=== PATIENT | male | born 1960 | race Caucasian/White ===

== ENCOUNTER 2022-07-12 11:15 | Outpatient (RCR) | payer OTHER, BC, SELFPAY | END 2022-10-01 14:52 | disposition home or self-care (01) | PROVIDERS: Visit Provider Physician Assistant | DX: M25.561 Pain in right knee (principal); R26.2 Difficulty in walking, not elsewhere classified; M25.661 Stiffness of right knee, not elsewhere classified; Z51.89 Encounter for other specified aftercare | CPT/HCPCS: 97032; 97110; 97140 ==

== ENCOUNTER 2022-09-05 08:06 | Outpatient (CLI) | payer OTHER, BC, SELFPAY ==
--- NOTE | 2022-09-05 08:15 | MR_ITS ---
[address] [address] Phone:?[phone] Fax:?[phone] Referring Physician Information: Ginger Clements [address] [facility] [address] Phone:?[phone] Fax:?[phone] Patient:?Mehrdad Farah D.O.B:?1960 Sex:?Male Phone:?[phone] [facility] MRN:?[id number] Exam Date:?09/05/2022 ? EXAM: MRI of the RIGHT KNEE, without contrast CLINICAL INFORMATION: Male, 61 years old, with right knee pain. INDICATION: Evaluate for meniscal tear. PRIOR SURGERY: None reported. PLAIN FILMS: None available. COMPARISONS: No prior MRIs available. TECHNICAL INFORMATION: Using a 1.5T MR scanner and a localizing surface coil: sagittals: PD, PDFS coronals: PD, STIR axials: PD, T2FS SEDATION: None CONTRAST: None FINDINGS: Knee joint: Effusion: Small right knee effusion. Popliteal cyst: None. Loose bodies: Approximately 12 x 8 x 12 mm ossific intra-articular body is present in the posterolateral aspect of the medial compartment, adjacent to the PCL (axial T2FS series 4 image 21 and sagittal PDFS series 6 image 17). An additional intra-articular bodies present in the anterior aspect of the joint, adjacent to the medial meniscal anterior root, measuring 6 x 2 x 3 mm (sagittal PDFS series 6 image 17 and coronal PD series 7 image 13). Subcutaneous and extra-articular soft tissues: Unremarkable. Ligaments: ACL: Intact ACL anteromedial and posterolateral bundles, without sprain or tear. PCL: Intact PCL, without acute or chronic injury. MCL: Intact MCL superficial and deep layers, without injury. LCL: Intact LCL, without injury. Posterolateral corner: No posterolateral corner soft tissue injury. Popliteus, biceps femoris, iliotibial band, popliteofibular ligament and lateral gastrocnemius are intact. Posteromedial corner: No posteromedial corner soft tissue injury. Semimembranosus, pes anserine tendons and posterior oblique ligament are without injury, tendinopathy or bursitis. Extensor mechanism: Patellar tendon: Intact, without tendinopathy. Quadriceps tendon: Intact, without tendinopathy. Retinacula: Medial and lateral retinacula are intact. Fat pads: Mild-moderate edema is present within the superolateral Hoffa's fat pad (sagittal PDFS series 6 image 10 and axial T2FS series 4 image 16). Unremarkable suprapatellar and prefemoral fat pads. Medial compartment: Medial meniscus: Complex apical free edge and undersurface tearing of the posterior horn and body measures 3.4 cm (sagittal PDFS series 6 images 21-26 and coronal STIR series 8 images 15-20). Meniscal extrusion measures 6 mm. No parameniscal cyst. A 10 x 2 x 3 mm flap of meniscal tissue has extruded into the meniscotibial recess (axial T2FS series 4 image 24 and coronal STIR series 8 image 17). An additional flap fragment is present in the anterior aspect of the medial compartment measuring 8 x 8 x 1 mm (sagittal PD series 5 image 21 and coronal STIR series 8 image 14). Medial femoral condyle & tibial plateau: Generalized grade III/IV chondromalacia of the medial compartment, with moderate reactive osseous changes and mild marginal osteophytosis. Lateral compartment: Lateral meniscus: No articular surface, meniscosynovial junction or root tear. No displacement, extrusion or parameniscal cyst. Lateral femoral condyle: Generalized mild grade II chondromalacia of the lateral femoral condyle with a superimposed 7 x 13 mm sharply marginated near full- thickness chondral defect (coronal STIR series 8 image 23 and sagittal PDFS series 6 image 10). Lateral tibial plateau: No chondromalacia or osteochondral abnormality. Patellofemoral joint: Patella: Generalized grade III chondromalacia of the patella, with mild marginal osteophytosis. Trochlea: Broad-based grade III chondromalacia of the medial facet and central sulcus of the trochlea, with mild marginal osteophytosis. Proximal tibiofibular joint: Unremarkable, without evidence of ligament sprain injury, joint effusion or adjacent marrow edema. Bones: No stress/occult fractures or other marrow edema/pathology. IMPRESSION: 1. Moderate-advanced osteoarthritis of the medial compartment. 2. Complex degenerative tearing of the posterior horn and body of the medial meniscus measuring 3.4 cm, with 6 mm of meniscal extrusion and 2 slender flap fragments, as described above. 3. Moderate osteoarthritis of the patellofemoral compartment. 4. 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 5. Small knee joint effusion with 2 ossific intra-articular bodies, the larger of which is located posteriorly measures 2 x 8 x 12 mm. 6. Patellar tendon lateral femoral condyle friction syndrome. 7. No cruciate or collateral ligament sprain/tear. 8. No lateral meniscal tear. BC Electronically signed on 09/05/2022 12:14:00 PM by Tino Florian M.D.
== END 2022-09-05 08:07 | disposition home or self-care (01) ==
LOC: MRI 08:09
PROVIDERS: PCP Physician Assistant; Visit Provider Physician Assistant
DX: M25.561 Pain in right knee (principal); M17.9 Osteoarthritis of knee, unspecified; M94.261 Chondromalacia, right knee; S89.91XD Unspecified injury of right lower leg, subsequent encounter
CPT/HCPCS: 73721

== ENCOUNTER 2025-06-20 01:24 | Emergency (ER) | payer OTHER, SELFPAY ==
--- OUTSIDE RECORDS SUMMARY | 2025-06-20 01:27 | XMS_ITS | Clinical Summary ---
Author Organization [facility] Address [address] [place] [address] Care Team Providers Care Shingler Name Role Phone Imelda Braswell Primary Care Provider [phone] Allergies Active Allergy Reactions Criticality Noted Date Comments Clindamycin Rash Medium 08/28/2010 Fixed hive like rash. Penicillins *Unknown 12/21/2015 Medications omeprazole (PRILOSEC) 40 mg Delayed-Release capsuleIndicatio ns:Gastroesophag eal reflux disease, unspecified whether esophagitis present TAKE 1 CAPSULE DAILY BEFORE A MEAL 90 Capsule 4 Active valACYclovir 500 mg tabletIndication s:Genital herpes simplex, unspecified site Take 1 tablet bid for 3 days. Take at onset of herpes outbreak. 18 Tablet 5 5 Active valACYclovir (VALTREX) 500 mg tabletIndication s:Genital herpes simplex, unspecified site TAKE 1 TABLET BY MOUTH TWICE DAILY X 3 DAYS 6 Tablet 6 4 06/08/20 25 Discontinu ed(Reorder (E-cancel not sent)) Active Problems Problem Noted Date Diagnosed Date Primary osteoarthritis of right knee 07/13/2023 Bodies, loose, joint, knee, right 01/18/2023 Encounter related to worker's compensation claim 01/18/2023 Arthritis of right knee 11/02/2022 Complex tear of medial meniscus of right knee Sigmoid diverticulitis 06/17/2019 Moderate single current epis ode of major depressive disorder 01/20/2016 Bilateral hearing loss 01/20/2016 Adenomatous colon polyp 08/18/2012 Overview (01/10/2021): Colonoscopy 08/2012 polyps repeat in 5 years Colonoscopy 01/2021 6 adenomatous polyps, repeat in 3 years Esophageal reflux 07/17/2012 Overview (01/10/2021): EGD 01/2021 mild eosinophilic esophagitis Genital herpes 07/03/2011 Resolved Problems Problem Noted Date Diagnosed Date Resolved Date Malignant melanoma of right upper extremity including shoulder 06/17/2019 07/13/2023 Overview (06/17/2019): Melanoma in situ. January 2019. Following with [facility]. Tick bite, infected 04/10/2010 07/03/20 11 Encounters Date Type Department Care Team Description 06/18/2025 9:45 AM CDT Ancillary Procedure [facility] [address] [place] [address] Arrived 06/18/2025 Travel 06/10/2025 Telephone [facility] [address] [place] [address] Olivia Marshall, RN Follow Up (Back pain and shortness of breath) 06/08/2025 10:50 AM CDT Office Visit [facility] [address] [place] [address] Imelda Braswell PA Back Pain (About 3 weeks ago his back was very sore-could not even touch his back-chiro said nothing wrong with spine and to see doctor-pain went through into stomach); Physical 06/08/2025 Travel from Last 3 Months Immunizations Immunization Administration Dates Next Due COVID-19 vaccine ([employer] 30mcg/0.3mL) P F, MDV 12/06/2021,11/08/2021 Influenza Virus, Unspecified 09/03/2020 Td (Age >=7 Years) 11/04/2006,11/10/1999 Tdap 09/14/2022,07/03/2011 Zoster (Shingrix-RZV, recombinant) 07/25/2021, Family History Medical History Relation Name Comments Other Brother 2 rare kidney dis ease Cancer-prostate Father , ag e 65 Unknown Maternal Grandfather Unknown Maternal Grandmother Stroke Mother , age 7 3 Unknown Paternal Grandfather Unknown Paternal Grandmother Good Health Sister 3 Other Sister 4 HTN, weak heart Blood Disease Sister 5 had bilateral dvt and PE? Stroke Sister 5 Relation Name Status Comments Brother 1 Alive Brother 2 Father Maternal Grandfather Maternal Grandmother Mother Paternal Grandfather Paternal Grandmother Sister 1 Alive Sister 2 Alive Sister 3 Sister 4 Sister 5 Social History Tobacco Use Types Packs/Day Years Used Date Smoking Tobacco: Never Smokeless Tobacco: Never Tobacco Cessation:Counseling Given: Yes Alcohol Use Standard Drinks/Week Comments Not Currently 0 (1 standard drink = 0.6 oz pur e alcohol) PHQ-2 Answer Date Recorded PHQ-2 TOTAL SCORE 3 06/08/2025 Social Connections Answer Date Recorded Do you often feel lonely or isolated from those around you? 4 06/08/2025 Financial Resource Strain Answer Date R ecorded Difficulty of Paying Living Expenses 3 06/08/2025 Difficulty of Paying Living Expenses Not on file 06/08/2025 Food Insecurity Answer Date Recorded Do you worry your food will run out before you are able to buy more? 1 06/08/2025 Transportation Needs Answer Date Record ed Does lack of transportation keep you from medica l appointments? 1 06/08/2025 Does lack of transportation keep you from work, meetings or getting things that you need? 2 06/08/2025 Housing Stability Answer Date Recorded What is your housing situation today? 1 06/08/2025 Utilities Answer Date Recorded Do you have trouble paying f or utilities (for example, heat, electricity, water, phone)? 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) Not on cordell e Not on file Not on file Obstetrics History Last Filed Vital Signs Vital Sign Reading Time Taken Comments Blood Pressure 129/81 06/08/2025 10:46 AM CDT Pulse 84 06/08/2025 10:46 AM CDT Temperature 37.1 C (98.8 F) 11/03/2020 8:58 AM CHEF FRENCH Respiratory Rate 20 06/09/2019 9:30 AM CDT Oxygen Saturation 96% 06/08/2025 10:46 AM CDT Inhaled Oxygen Concentration - - Weight 105.2 kg (232 lb) 06/11/2025 6:10 AM CDT Height 167.6 cm (5' 6) 06/11/2025 6:10 AM CDT Body Mass Index 37.45 06/11/2025 6:10 AM CDT Plan of Treatment Health Maintenance Due Date Last Done Comments Pneumococcal series for age 50+ (1 of 1 - PCV) 2011 Colonoscopy through age 75 01/06/202401/06, 01/06/2021, 01/06/2021, Additional history exists COVID-19 vaccine series ( season) 2024 12/06/2021, 11/08/2021 Influenza Vaccine (#1) 2025 09/03/2020 BMI (ht and wt on same day) for age 18+ 06/08/2026 06/08/2025, 01/18/2023, 12/07/2022, Additional history exists Depression screening for age 12+ 06/08/2026 06/08/2025, 07/11/2023, 05/25/2021, Additional history exists Lipids for age 45-75 06/08/2030 06/08/2025, 07/11/2023, 06/16/2020, Additional history exists Tetanus booster 09/14/2032 09/14/2022, 08/01/2011, 11/04/2006, Additional history exists RSV vaccine for adults or (1 - 1-dose 75+ series) 2036 HIV for age 15-65 Completed 03/08/2010, 07/26/2009 Hepatitis C screening for age 18-79 Completed 03/08/2010, 07/26/2009 Zoster (shingles) series for age 50+ Completed 07/25/2021, 05/25/2021 Hepatitis B series for 19+ Aged Out N o longer eligible based on patient's age to complete this topic Procedures Procedure Name Priority Date/Time Associated Diagnosis Comments US ABDOMEN LIMITED RUQ Routine 06/18/2025 10:03 AM CDT Abdominal pain, RUQ (right upper quadrant) LIPID PANEL W REFLEX MEASURED LDL Routine 06/08/2025 11:28 AM CDT Screening cholesterol level COMP METABOLIC PANEL Routine 06/08/2025 11:28 AM CDT Diabetes mellitus screening HEMOGLOBIN A1C Routine 06/08/2025 11:28 AM CDT Diabetes mellitus screening PSA TOTAL Routine 06/08/2025 11:28 AM CDT Screening for malignant neoplasm of prostate CBC WITH AUTO DIFFERENTIAL Routine 06/08/2025 11:28 AM CDT Abdominal pain, RUQ (right upper quadrant) LIPASE Routine 06/08/2025 11:28 AM CDT Abdominal pain, RUQ (right upper quadrant) COLONOSCOPY SCREENING Routine 01/06/2021 7:55 AM CHEF FRENCH History of colon polyps Polyp of colon, unspecified part of colon, unspecified type Diverticulosis ANTI HIV 1/2 Routine 03/08/2010 10:44 AM CDT Screening for STDs (sexually transmitted diseases) ANTI HCV Routine 03/08/2010 10:44 AM CDT Screening for STDs (sexually transmitted diseases) from Last 3 Months or Most Recently Relevant to Health Maintenance Results * US ABDOMEN LIMITED RUQ (06/18/2025 10:03 AM CDT) Anatomical Region Laterality Modality Abdomen, LIVER Ultrasound 06/18/2025 3:09 PM CDT Impressions 06/18/2025 3:09 PM CDT Moderately severe hepatic steatosis. Remainder normal. Dictated by Micheal Chavarria MD @ 06/18/2025 3:09:38 PM (Electronically Signed) Narrative 06/18/2025 3:09 PM CDT For Patients: As a result of the Century Cures Act, medical imaging exams and procedure reports are released immediately into your electronic medical record. You may view this report before your referring provider. If you have questions, please contact your health care provider. INDICATION: Abdominal pain, RUQ (right upper quadrant) COMPARISON: none TECHNIQUE: Real time mcleod scale imaging and color Doppler analysis was performed of the right upper quadrant. FINDINGS: Liver echotexture is diffusely increased. No intrahepatic mass. There is a normal appearance of the hepatic IVC and proximal abdominal aorta. There is no evidence of ascites. The gallbladder is of normal size and there is no evidence of intraluminal stones or sludge. The gallbladder wall measures 3 mm in thickness. The common bile duct is of normal size and measures 3 mm in diameter at the level of the mirta hepatis. The visualized pancreas appears normal. There is no evidence of a stone or hydronephrosis within the right kidney. The right kidney measures 11.0 cm in length. Procedure Note Micheal Chavarria MD - 06/18/2025 For Patients: As a result of the Cures Act, medical imagingexams and procedure reports are released immediately into your electronicmedical record. You may view this report before your referring provider.If you have questions, please contact your health care provider. INDICATION: Abdominal pain, RUQ (right upper quadrant) COMPARISON: none TECHNIQUE: Real time mcleod scale imaging and color Doppler analysis was performed ofthe right upper quadrant. FINDINGS: Liver echotexture is diffusely increased. No intrahepatic mass. There is anormal appearance of the hepatic IVC and proximal abdominal aorta. Thereis no evidence of ascites. The gallbladder is of normal size and there isno evidence of intraluminal stones or sludge. The gallbladder wallmeasures 3 mm in thickness. The common bile duct is of normal size andmeasures 3 mm in diameter at the level of the mirta hepatis. Thevisualized pancreas appears normal. There is no evidence of a stone orhydronephrosis within the right kidney. The right kidney measures 11.0 cmin length. IMPRESSION: Moderately severe hepatic steatosis. Remainder normal. Dictated by Micheal Chavarria MD @ 06/18/2025 3:09:38 PM (Electronically Signed) us Imelda ELDRIDGE US Final Resu lt * HEMOGLOBIN A1C (06/08/2025 11:28 AM CDT) HEMOGLOBIN A1C 5.4 <5.7 % [facility] Comment: For the purpose of screening for the presence of diabetes: <5.7% Consistent with the absence of diabetes 5.7-6.4% Consistent with increased risk for diabetes (prediabetes) > or =6.5% Consistent with diabetes This assay result is consistent with a decreased risk of diabetes. Currently, no consensus exists regarding use of hemoglobin A1c for diagnosis of diabetes in children. According to [place] Diabetes Association (ADA) guidelines, hemoglobin A1c <7.0% represents optimal control in non- diabetic patients. Different metrics may apply to specific patient populations. Standards of Medical Care in Diabetes(ADA). Blood BLOOD SPECIMEN / Unknown 06/08/2025 11:28 AM CDT 06/08/2025 11:28 AM CDT Imelda ELDRIDGE CHEMISTRY Final Resu lt [facility] [address] [place] [address], [employer] [address] [place] [address] * (ABNORMAL) LIPID PANEL W REFLEX MEASURED LDL (06/08/2025 11:28 AM CDT) [facility] Signature CHOLESTEROL, TOTAL 167 <200 mg/dL [facility] HDL CHOLESTEROL 33(L) > OR = 40 mg/dL [facility] TRIGLYCERIDES 268(H) <150 mg/dL [facility] Comment: If a non-fasting specimen was collected, consider repeat triglyceride testing on a fasting specimen if clinically indicated. Mamta et al. J. of Clin. Lipidol. 2015;9:129-169. LDL-CHOLESTEROL 96 mg/dL (calc) [facility] Comment: Reference range: <100 Desirable range <100 mg/dL for primary prevention; <70 mg/dL for patients with CHD or diabetic patients with > or = 2 CHD risk factors. LDL-C is now calculated using the Randa calculation, which is a validated novel method providing better accuracy than the Friedewald equation in the estimation of LDL-C. Shay SS et al. DIANE. 2013;310(19): 0469-6618 (http://education.[facility]/faq/KZW936) CHOL/HDLC RATIO 5.1(H) <5.0 (calc) [facility] NON HDL CHOLESTEROL 134(H) <130 mg/dL (calc) [facility] Comment: For patients with diabetes plus 1 major ASCVD risk factor, treating to a non-HDL-C goal of <100 mg/dL (LDL-C of <70 mg/dL) is considered a therapeutic option. Blood BLOOD SPECIMEN / Unknown 06/08/2025 11:28 AM CDT 06/08/2025 11:28 AM CDT Imelda ELDRIDGE CHEMISTRY Final Resu lt [facility] [address] [place] [address], [employer] [id number] [place] [address] * (ABNORMAL) CBC AND DIFFERENTIAL (06/08/2025 11:28 AM CDT) WHITE BLOOD CELL COUNT 6.9 3.8 - 10.8 Thousand/u L [facility] RED BLOOD CELL COUNT 5.27 4.20 - 5.80 Million/uL [facility] HEMOGLOBIN 15.6 13.2 - 17.1 g/dL [facility] HEMATOCRIT 46.5 38.5 - 50.0 % [facility] MCV 88.2 80.0 - 100.0 fL [facility] MCH 29.6 27.0 - 33.0 pg [facility] MCHC 33.5 32.0 - 36.0 g/dL [facility] Comment: For adults, a slight decrease in the calculated MCHC value (in the range of 30 to 32 g/dL) is most likely not clinically significant; however, it should be interpreted with caution in correlation with other red cell parameters and the patient's clinical condition. RDW 14.3 11.0 - 15.0 % [facility] PLATELET COUNT 283 140 - 400 Thousand/u L [facility] MPV 9.3 7.5 - 12.5 fL [facility] ABSOLUTE NEUTROPHILS 3,491 1,500 - 7,800 cells/uL [facility] ABSOLUTE LYMPHOCYTES 2,049 850 - 3,900 cells/uL [facility] ABSOLUTE MONOCYTES 759 200 - 950 cells/uL [facility] ABSOLUTE EOSINOPHILS 531(H) 15 - 500 cells/uL [facility] ABSOLUTE BASOPHILS 69 0 - 200 cells/uL [facility] NEUTROPHILS 50.6 % [facility] LYMPHOCYTES 29.7 % [facility] MONOCYTES 11.0 % [facility] EOSINOPHILS 7.7 % [facility] BASOPHILS 1.0 % [facility] Blood BLOOD SPECIMEN / Unknown 06/08/2025 11:28 AM CDT 06/08/2025 11:28 AM CDT us Imelda ELDRIDGE HEMATOLOGY Final Resu lt [facility] [address] [place] [address], [employer] [address] * PSA TOTAL (DIAG OR SCREEN) (06/08/2025 11:28 AM CDT) PSA, TOTAL 0.77 < OR = 4.00 ng/mL [facility] Comment: The total PSA value from this assay system is standardized against the WHO standard. The test result will be approximately 20% lower when compared to the equimolar-standardized total PSA ([place]ather [place]). Comparison of serial PSA results should be interpreted with this fact in mind. This test was performed using the Siemens chemiluminescent method. Values obtained from different assay methods cannot be used interchangeably. PSA levels, regardless of value, should not be interpreted as absolute evidence of the presence or absence of disease. Blood BLOOD SPECIMEN / Unknown 06/08/2025 11:28 AM CDT 06/08/2025 11:28 AM CDT Imelda ELDRIDGE CHEMISTRY Final Resu lt [facility] [address] [place] [address], [place] [phone] [employer] [address] [place] [address] * LIPASE (06/08/2025 11:28 AM CDT) Pathologist [facility] LIPASE 45 7 - 60 U/L [employer] Blood BLOOD SPECIMEN / Unknown 06/08/2025 11:28 AM CDT 06/08/2025 11:28 AM CDT Imelda ELDRIDGE CHEMISTRY Final Resu lt Performing Organization Address [facility] Co de Phone Number [employer] [facility] [address] [place] [address], [place] [phone] [employer] [address] [place] [address] * (ABNORMAL) COMP METABOLIC PANEL (06/08/2025 11:28 AM CDT) GLUCOSE 102(H) 65 - 99 mg/dL [employer] Comment: Fasting reference interval For someone without known diabetes, a glucose value between 100 and 125 mg/dL is consistent with prediabetes and should be confirmed with a follow-up test. UREA NITROGEN (BUN) 17 7 - 25 mg/dL [employer] CREATININE 0.87 0.70 - 1.35 mg/dL [employer] EGFR 97 > OR = 60 mL/min/1. 73m2 [facility] BUN/CREATININE RATIO SEE NOTE: (calc) [facility] Comment: Not Reported: BUN and Creatinine are within reference range. SODIUM 139 135 - 146 mmol/L [facility] POTASSIUM 4.1 3.5 - 5.3 mmol/L [facility] CHLORIDE 106 98 - 110 mmol/L [facility] CARBON DIOXIDE 24 20 - 32 mmol/L [facility] CALCIUM 9.2 8.6 - 10.3 mg/dL [facility] PROTEIN, TOTAL 7.1 6.1 - 8.1 g/dL [facility] ALBUMIN 4.2 3.6 - 5.1 g/dL [facility] GLOBULIN 2.9 1.9 - 3.7 g/dL (calc) [facility] ALBUMIN/GLOBULIN RATIO 1.4 1.0 - 2.5 (calc) [facility] BILIRUBIN, TOTAL 0.6 0.2 - 1.2 mg/dL [facility] ALKALINE PHOSPHATASE 109 35 - 144 U/L [facility] AST 29 10 - 35 U/L [facility] ALT 36 9 - 46 U/L [facility] Blood BLOOD SPECIMEN / Unknown 06/08/2025 11:28 AM CDT 06/08/2025 11:28 AM CDT Imelda ELDRIDGE CHEMISTRY Final Resu lt [facility] [address] [place] [address], [facility] [address] [place] [address] * COLONOSCOPY (01/06/2021 7:51 AM CHEF FRENCH) 01/06/2021 7:51 AM CHEF FRENCH Narrative Transcriptions Shay Cummings MD - 01/06/2021 9:02 AM CST Patient Name: Selma Farah Procedure Date: 01/06/2021 Gender: Male Date of : 1960 Admit Type: Outpatient Procedure: Colonoscopy Proceduralist: Shay Cummings MD , Suze Fletcher RN (Nurse), Cleo Markham (Nurse) Referring MD: Radha Murrieta Indications/Pre-Op Diagnosis: Surveillance: Personal history ofadenomatous polyps on last colonoscopy > 5 years ago,Last colonoscopy: August 2012 Medications: Fentanyl 100 micrograms IV, Midazolam 5 mgIV, (medications documented represent totaldosages for multiple procedures) Procedure Description: The patient had risks, benefits and alternatives explained to andgave informed consent. The patient had a stable cardiopulmonary status and judged an adequate candidate for conscious sedation. The Colonoscope was passed through the anus and advanced to thececum, identified by appendiceal orifice and ileocecal valve. Thecolonoscopy was performed without difficulty. The patient tolerated the procedure well. The quality of the bowel preparation was good. The ileocecal valve, appendiceal orifice, and rectum were photographed. Complications: No immediate complications. Estimated Blood Loss & Specimen: Estimated blood loss: none. Specimen collected - Yes and sent to Laboratory Findings: The perianal and digital rectal examinations were normal. Five sessile polyps were found in the ascending colon. The polypswere 3 to 5 mm in size. These polyps were removed with a cold snare.Resection and retrieval were complete. A 4 mm polyp was found in the descending colon. The polyp wassessile. The polyp was removed with a cold snare. Resection and retrieval were complete. Multiple small and large-mouthed diverticula were found in thesigmoid colon and descending colon. Starr-diverticular erythema was seen. Diverticular are present from 40 cm to 15 cm. The exam was otherwise without abnormality on direct and retroflexion views. Impressions/Post-Op Diagnosis: - Five 3 to 5 mm polyps in the ascending colon, removed with a cold snare. Resected and retrieved. - One 4 mm polyp in the descending colon, removed with a cold snare. Resected and retrieved. - Mild diverticulosis in the sigmoid colon and in the descendingcolon. Starr-diverticular erythema was seen. - The examination was otherwise normal on direct and retroflexionviews. Recommendation: - Patient has a contact number available for emergencies. The signsand symptoms of potential delayed complications were discussed with the patient. Return to normal activities tomorrow. Written discharge instructions were provided to the patient. - Resume previous diet. - Continue present medications. - Await pathology results. - Repeat colonoscopy is recommended for surveillance. The colonoscopy date will be determined after pathology results from today's exambecome available for review. Moderate Sedation: Moderate (conscious) sedation was administered by the endoscopy nurse and supervised by the endoscopist. The following parameters were monitored: oxygen saturation, heart rate, respiratory rate, blood pressure, adequacy of pulmonary ventilation and reponse to care. Please refer to the patient's medical record flowsheets and nursing notes for moderate sedation details. Total physician intraservice time was 28 minutes. Shay Cummings MD 01/06/2021 9:01:54 AM This report has been signed electronically. Note Initiated On: 01/06/2021 7:51 AM Procedure Code(s): --- Professional --- 34414, Colonoscopy, flexible; with removalof tumor(s), polyp(s), or other lesion(s) bysnare technique Diagnosis Code(s): --- Professional --- K63.5, Polyp of colon Z86.010, Personal history of colonicpolyps K57.30, Diverticulosis of large intestine without perforation or abscess withoutbleeding CPT copyright 2019 [place] [employer]. All rights reserved. The codes documented in this report are preliminary and upon customer assistant reviewmay be revised to meet current compliance requirements. Scope In: 8:38:09 AM Scope Withdrawal Time 0 hours 14 minutes 13 seconds Scope Out: 8:54:30 AM us Shay Cummings MD PROCEDURE ORD Final Res ult * ANTI HCV (03/08/2010 10:44 AM CDT) ANTI HCV Non-reacti ve [facility] Blood specimen (specimen) BLOOD SPECIMEN / Unknown 03/08/2010 10:44 AM CDT 03/08/2010 10:37 AM CDT us Imelda Coleman DINKEY ENGINEER [employer] Final R esult [facility] [place]NAL ZIP [address] [address] * ANTI HIV 1/2 (03/08/2010 10:44 AM CDT) ANTI HIV 1/2 Non-reacti ve [facility] Blood specimen (specimen) BLOOD SPECIMEN / Unknown 03/08/2010 10:44 AM CDT 03/08/2010 10:37 AM CDT us Imelda Coleman DINKEY ENGINEER [employer] Final R esult [facility] [place]NAL ZIP [address] [place] [id number] from Last 3 Months or Most Recently Relevant to Health Maintenance Insurance [facility] * Guarantor: SELMA FARAH Account Type Relation to Patient Date of Phone Billing Address Workers Comp 1960 [id number] [facility] [place] [address] [employer] Care Teams Shingler Relationship Specialty Start Date End Date Imelda Braswell PA [address] [place] [address] PCP - General Physician Boat Assembler 07/02/23
[2025-06-20 01:28] VITALS: BP 169/91; PULSE 87; RESP 16; TEMP 36.3; O2SAT 97; BMI 35.0
--- NOTE | 2025-06-20 01:46 | ED.NECK ---
HPI - Neck Pain/Injury General Chief Complaint: Neck Injury/Pain Stated Complaint: neck pain, cardiac concerns Time Seen by Provider: 06/20/25 01:27 History of Present Illness HPI Narrative: Patient is a 64-year-old gentleman with no cardiovascular risk factors who presents with pain in the left side of his neck with movement. The pain is over the sternocleidomastoid extending posteriorly. He has no chest pain no shortness breath no radiculopathy no nausea no vomiting no fevers no chills. Pain is been often on for last several weeks. Patient has seen chiropractic in the symptoms did improve. Tonight he may have moved differently and he was having severe pain in the posterior occiput put and prior to coming to the emergency room he took 1 Tylenol. Pain is now gone. Patient has had no further symptoms and now feels well. Related Data Allergies Allergy/AdvReac Type Severity Reaction Status Date / Time Penicillins Allergy Intermediate Verified 06/20/25 01:33 Review of Systems Status of ROS: Reports: 10 or more systems reviewed and unremarkable except as noted in History and below Exam Narrative: Exam Narrative: EXAM GENERAL: Patient appears comfortable and well. EYES: No scleral icterus. ENT: Tympanic membranes and oropharynx normal. THYROID: no thyroid nodules or thyromegaly. LYMPH: No supraclavicular or cervical lymphadenopathy. SKIN: Visible skin seen during exam normal or with benign process only. EXT: No dependent lower extremity pedal edema. HEART: Regular rate and rhythm with no murmurs, rubs, or gallops. LUNGS: Clear to auscultation bilaterally with no crackles or wheezes. ABD: Soft, non tender, non distended. PSYCH: Good eye contact, speech is not pressured. Const: Vital Signs, click to edit/add: Vital Signs - 24 hr 06/20/25 01:28 Temperature 97.3 F L Pulse Rate [Left P ulse Oximeter] 87 Respiratory Rate 16 Blood Pressure [Ri ght Upper Arm] 169/91 H Pulse Oximetry 97 Oxygen Delivery Me thod Room Air Course Course ED Course: Patient seen and examined. Twelve lead EKG is normal upon my review. I did offer further evaluation and or anti-inflammatories. Patient declines stating that he feels much better. I would recommend ibuprofen 600 mg every 6 hours as needed ice and follow-up with primary care. Vital Signs Vital signs: Initial Vital Signs Temperature 97.3 F L 06/20/25 01:28 Temperature Source Temporal Artery Scan 06/20/25 01:28 Pulse Rate 87 06/20/25 01:28 Pulse Rhythm Regular 06/20/25 01:28 Respiratory Rate 16 06/20/25 01:28 Blood Pressure 169/91 H 06/20/25 01:28 Blood Pressure Mean 117 H 06/20/25 01:28 Blood Pressure Position Sitting 06/20/25 01:28 Pulse Oximetry 97 06/20/25 01:28 Oxygen Delivery Method Room Air 06/20/25 01:28 Vital Signs Temperature 97.3 F L 06/20/25 01:28 Pulse Rate 87 06/20/25 01:28 Respiratory Rate 16 06/20/25 01:28 Blood Pressure 169/91 H 06/20/25 01:28 Pulse Oximetry 97 06/20/25 01:28 Oxygen Delivery Method Room Air 06/20/25 01:28 Temperature 97.3 F L 06/20/25 01:28 Pulse Rate 87 06/20/25 01:28 Respiratory Rate 16 06/20/25 01:28 Blood Pressure 169/91 H 06/20/25 01:28 Pulse Oximetry 97 06/20/25 01:28 Oxygen Delivery Method Room Air 06/20/25 01:28 Discharge Plan Discharge Clinical Impression: Strain of neck muscle Patient Disposition: Home, Self-Care Condition: Stable Instructions: Cervical Sprain (ED) Additional Instructions: Tylenol 650 to a 1000 mg 3 times a day as needed Ibuprofen 600 mg 3 times a day as needed Rotate ice and heat Follow-up with your doctor as needed. Activity Level: No Restrictions Discharge Diet: Regular Follow Up/Referrals: Radha Murrieta PA [Primary Care Provider, Family Practice] Stand Alone Forms: MyHealth Info Instructions
== END 2025-06-20 02:14 | disposition home or self-care (01) ==
LOC: ED 02:11
PROVIDERS: Emergency Provider Internal Medicine; PCP Physician Assistant
DX: S16.1XXA Strain of muscle, fascia and tendon at neck level, initial encounter (principal)
CPT/HCPCS: 99283

== ENCOUNTER 2025-09-16 12:17 | Emergency (ER) | payer OTHER, SELFPAY ==
--- OUTSIDE RECORDS SUMMARY | 2025-09-16 12:20 | XMS_ITS | Clinical Summary ---
Author Organization [facility] Address [address] [place] [address] Care Team Providers Care Global Account Director Name Role Phone Imelda Braswell Primary Care Provider [phone] Allergies Active Allergy Reactions Criticality Noted Date Comments Clindamycin Rash Medium 08/28/2010 Fixed hive like rash. Penicillins *Unknown 12/21/2015 Medications valACYclovir 500 mg tabletIndication s:Genital herpes simplex, unspecified site Take 1 tablet bid for 3 days. Take at onset of herpes outbreak. 18 Tablet 5 06/08/20 25 Active semaglutide (weight loss) (Wegovy) 1.7 mg/0.75 mL subcutaneous penIndications:C lass 2 severe obesity with body mass index (BMI) of 35 to 39.9 with serious comorbidity,Fatt y liver Inject 1.7 mg subcutaneous once weekly for 28 days. Start after 4 weeks of 1 mg dose. 3 mL 12/06/19 26 026 Active semaglutide (weight loss) (Wegovy) 2.4 mg/0.75 mL subcutaneous penIndications:C lass 2 severe obesity with body mass index (BMI) of 35 to 39.9 with serious comorbidity,Fatt y liver Inject 2.4 mg subcutaneous once weekly. Start after 4 weeks of 1.7 mg dosing, continue 2.4 mg as maintenance. 9 mL 3 01/03/20 26 Active omeprazole (PRILOSEC) 40 mg Delayed-Release capsuleIndicatio ns:Gastroesophag eal reflux disease, unspecified whether esophagitis present Take 1 Capsule (40 mg) by mouth once daily before a meal. 10/13/20 25 Active omeprazole (PRILOSEC) 40 mg Delayed-Release capsuleIndicatio ns:Gastroesophag eal reflux disease, unspecified whether esophagitis present TAKE 1 CAPSULE DAILY BEFORE A MEAL 90 Capsule 09/26/20 025 Discontinu ed(Reorder (E-cancel not sent)) semaglutide (weight loss) (Wegovy) 0.5 mg/0.5 mL subcutaneous penIndications:F atty liver,Class 2 severe obesity with body mass index (BMI) of 35 to 39.9 with serious comorbidity Inject 0.5 mg subcutaneous once weekly for 28 days. Start after 4 weeks of 0.25 mg dose. 2 mL 07/29/20 25 025 semaglutide (weight loss) (Wegovy) 1 mg/0.5 mL subcutaneous penIndications:F atty liver,Class 2 severe obesity with body mass index (BMI) of 35 to 39.9 with serious comorbidity Inject 1 mg subcutaneous once weekly for 28 days. Start after 4 weeks of 0.5 mg dose. 2 mL 08/26/20 025 Discontinu ed(*Medica tion adjustment ) Active Problems Problem Noted Date Diagnosed Date History of skin cancer 09/15/2025 Class 2 severe obesity with body mass index (BMI) of 35 to 39.9 with serious comorbidity 09/15/2025 Fatty liver 06/21/2025 Primary osteoarthritis of right knee 07/13/2023 Bodies, [...] Encounters Date Type Department Care Team Description 09/16/2025 Nurse Triage [facility] [address] [place] [address] Imelda Braswell PA Abdominal Pain 09/13/2025 9:30 AM CDT Office Visit [facility] [address] [place] [address] Imelda Braswell PA Follow Up; Medication Management 09/13/2025 Travel 09/02/2025 Orders Only [facility] Scanner 1 scan: (1-Ord) [facility] 07/02/2025 Telephone [facility] [address] [place] [address] Imelda Braswell PA Prior Authorization (semaglutide (Wegovy) 0.25 mg/0.5 mL subcutaneous pen - APPEAL APPROVED 06/12/25-02/08/26) 07/01/2025 8:30 AM CDT Office Visit [facility] [address] [place] [address] Imelda Braswell PA Results (Follow up on liver) 07/01/2025 Travel 06/18/2025 9:45 AM CDT Ancillary Procedure [facility] [address] [place] [address] 06/18/2025 Travel from Last 3 Months Immunizations Immunization Administration Dates Next Due COVID-19 vaccine (Cache IQ 30mcg/0.3mL) P F, MDV 12/06/2021,11/08/2021 Influenza Virus, [...] on file Legal Sex Male 5:26 AM 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 AUTOMATION ENGINEER Gender Identity Not on file Sexual Orientation Not on file 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) Not on cordell e Not on file Not on file Obstetrics History Last Filed Vital Signs Vital Sign Reading Time Taken Comments Blood Pressure 127/83 09/13/2025 9:30 AM CDT Pulse 85 09/13/2025 9:30 AM CDT Temperature 37.1 C (98.8 F) 11/03/2020 8:58 AM 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 AUTOMATION ENGINEER Respiratory Rate 20 06/09/2019 9:30 AM CDT Oxygen Saturation 97% 09/13/2025 9:30 AM CDT Inhaled Oxygen Concentration - - Weight 100.2 kg (221 lb) 09/13/2025 9:30 AM CDT Height 167.6 cm (5' 6) 06/11/2025 6:10 AM CDT Body Mass Index 35.67 06/11/2025 6:10 AM CDT Plan of Treatment Upcoming Encounters Date Type Department Care Team (Late st Contact Info) Description 09/21/2025 9:45 AM CDT Ancillary Procedure [facility] [address] [place] [address] 09/24/2025 2:45 PM CDT Ancillary Procedure [facility] [address] [place] [address] Health Maintenance Due Date Last Done Comments Pneumococcal series for age 50+ (1 of 1 - PCV) 2011 RSV vaccine for adults or (1 - Risk 60-74 years 1-dose series) 2021 Colonoscopy through age 75 01/06/202401/06, 01/06/2021, 01/06/2021, Additional history exists COVID-19 vaccine series ( season) 2025 12/06/2021, 11/08/2021 Influenza Vaccine (#1) 2025 09/03/2020 BMI (ht and wt on same day) for age 18+ 06/08/2026 06/08/2025, 01/18/2023, 12/07/2022, Additional history exists Depression screening for age 12+ 06/08/2026 06/08/2025, 07/11/2023, 05/25/2021, Additional history exists Lipids for age 45-75 06/08/2030 06/08/2025, 07/11/2023, 06/16/2020, Additional history exists Tetanus booster 09/14/2032 09/14/2022, 08/01/2011, 11/04/2006, Additional history exists HIV for age 15-65 Completed 03/08/2010, 07/26/2009 Hepatitis C screening for age 18-79 Completed 03/08/2010, 07/26/2009 Zoster (shingles) series for age 50+ Completed 07/25/2021, 05/25/2021 Hepatitis B series for 19+ Aged Out N o longer eligible based on patient's age to complete this topic Procedures Procedure Name Priority Date/Time Associated Diagnosis Comments SCAN-EYE EXAM 09/02/2025 12:00 AM CDT US ABDOMEN LIMITED RUQ Routine 06/18/2025 10:03 AM CDT Abdominal pain, RUQ (right upper quadrant) LIPID PANEL W REFLEX MEASURED LDL Routine 06/08/2025 11:28 AM CDT Screening cholesterol level COLONOSCOPY SCREENING Routine 01/06/2021 7:55 AM 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 AUTOMATION ENGINEER History of colon polyps Polyp of colon, unspecified part of colon, unspecified type Diverticulosis ANTI HIV 1/2 Routine 03/08/2010 10:44 AM CDT Screening for STDs (sexually transmitted diseases) ANTI HCV Routine 03/08/2010 10:44 AM CDT Screening for STDs (sexually transmitted diseases) from Last 3 Months or Most Recently Relevant to Health Maintenance Results * SCAN-EYE EXAM (09/02/2025 12:00 AM CDT) us Scanner OTHER Final Result * US ABDOMEN LIMITED RUQ (06/18/2025 10:03 [...] Imelda ELDRIDGE US Final Resu lt * (ABNORMAL) LIPID PANEL W REFLEX MEASURED LDL (06/08/2025 11:28 AM CDT) CHOLESTEROL, TOTAL 167 <200 mg/dL [facility] HDL CHOLESTEROL 33(L) > OR = 40 mg/dL [facility] TRIGLYCERIDES 268(H) <150 mg/dL [facility] Comment: If a non-fasting specimen was collected, consider repeat triglyceride testing on a fasting specimen if clinically indicated. Mamta et al. J. of Clin. Lipidol. 2015;9:129-169. LDL-CHOLESTEROL 96 mg/dL (calc) [facility] Comment: Reference range: <100 Desirable range <100 mg/dL for primary prevention; <70 mg/dL for patients with CHD or diabetic patients with > or = 2 CHD risk factors. LDL-C is now calculated using the Randa calculation, which is a validated novel method providing better accuracy than the Friedewald equation in the estimation of LDL-C. Shay SS et al. DIANE. 2013;310(19): 5819-2567 (http://education.PxRadia/faq/JGX823) CHOL/HDLC RATIO 5.1(H) <5.0 (calc) [facility] NON HDL CHOLESTEROL 134(H) <130 mg/dL (calc) [facility] Comment: For patients with diabetes plus 1 major ASCVD risk factor, treating to a non-HDL-C goal of <100 mg/dL (LDL-C of <70 mg/dL) is considered a therapeutic option. Blood BLOOD SPECIMEN / Unknown 06/08/2025 11:28 AM CDT 06/08/2025 11:28 AM CDT us Imelda ELDRIDGE CHEMISTRY Final Resu lt [facility] [address] [place] [address], [facility] [address] [place] [address] * COLONOSCOPY (01/06/2021 7:51 AM 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 AUTOMATION ENGINEER) 01/06/2021 7:51 AM 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 AUTOMATION ENGINEER Narrative Transcriptions Shay Cummings MD - 01/06/2021 9:02 AM CST Patient Name: Selma Farah Procedure Date: 01/06/2021 Gender: Male Date of : 1960 Admit Type: Outpatient Procedure: Colonoscopy Proceduralist: Shay Cummings MD , Suze Fletcher, HERNAN (Nurse), Cleo Markham (Nurse) Referring MD: Radha [...] 7:51 AM Procedure Code(s): --- Professional --- 71484, Colonoscopy, flexible; with removalof tumor(s), polyp(s), or other lesion(s) bysnare technique Diagnosis Code(s): --- Professional --- K63.5, Polyp of colon Z86.010, Personal history of colonicpolyps K57.30, Diverticulosis of large intestine without perforation or abscess withoutbleeding CPT copyright 2019 [employer]. All rights reserved. The codes documented in this report are preliminary and upon correctional food service supervisor reviewmay be revised to meet current compliance requirements. Scope In: 8:38:09 AM Scope Withdrawal Time 0 hours 14 minutes 13 seconds Scope Out: 8:54:30 AM us Shay Cummings MD PROCEDURE ORD Final Res ult * ANTI HCV (03/08/2010 10:44 AM CDT) ANTI HCV Non-reacti ve [facility] Blood specimen (specimen) BLOOD SPECIMEN / Unknown 03/08/2010 10:44 AM CDT 03/08/2010 10:37 AM CDT Imelda Coleman INTERRELATED SPECIAL EDUCATION TEACHER SEND OUTS Final R esult [facility] INTERNAL ZIP [address] [place] [id number] * ANTI HIV 1/2 (03/08/2010 10:44 AM CDT) ANTI HIV 1/2 Non-reacti [facility] Blood specimen (specimen) BLOOD SPECIMEN / Unknown 03/08/2010 10:44 AM CDT 03/08/2010 10:37 AM CDT Imelda Coleman INTERRELATED SPECIAL EDUCATION TEACHER SEND OUTS Final R esult Performing Organization Address City/[facility]/ZIP Co de Phone Number [facility] INTERNAL ZIP [address] [address] from Last 3 Months or Most Recently Relevant to Health Maintenance Insurance [facility] * Guarantor: SELMA FARAH Account Type Relation to Patient Date of Phone Billing Address [employer] 1960 [id number] [place] [address] [employer] Care Teams Global Account Director Relationship Specialty Start Date End Date Imelda Braswell PA [address] [place] [place] [address] PCP - General Physician Chiller Operator 07/02/23
[2025-09-16 12:21] VITALS: BP 157/81; PULSE 107; RESP 18; TEMP 37.1; O2SAT 96
--- NOTE | 2025-09-16 12:42 | CRLHL7_ITS ---
For Patients: As a result of the Century Cures Act, medical imaging exams and procedure reports are released immediately into your electronic medical record. You may view this report before your referring provider. If you have questions, please contact your health care provider. INDICATION: Left lower quadrant abdominal pain TECHNIQUE: CT abdomen and pelvis acquired with 108 cc Isovue 370 IV contrast. COMPARISON: None. FINDINGS: Lower chest: Unremarkable. Liver: Calcified granulomas. Scattered subcentimeter hypodense lesions in the liver, likely cysts. Gallbladder and bile ducts: Unremarkable. No biliary ductal dilation. Pancreas: Mild pancreatic atrophy. Spleen: Unremarkable. Adrenal glands: Unremarkable. Kidneys: Left renal cysts and bilateral subcentimeter hypodense lesions, likely cysts. GI tract: No obstruction. Soft tissue stranding surrounding a descending colonic diverticula with adjacent peritoneal thickening. No extraluminal gas. No fluid collection. Normal appendix. Vasculature: Abdominal aorta is normal in caliber. Mild aortic atherosclerosis. Mesenteric arteries are patent. Lymph nodes: No lymphadenopathy. Peritoneum/Abdominal Wall: Small fat containing inguinal hernias. Pelvis: Unremarkable. Bones: Mild degenerative disease of the spine. Limbus vertebrae at L5. IMPRESSION: Acute uncomplicated descending colonic diverticulitis. Please note that all CT scans at this facility use dose modulation, iterative reconstruction, and/or weight-based dosing when appropriate to reduce radiation dose to as low as reasonably achievable. Dictated by Sheryl Perdue MD @ 09/16/2025 1:48:49 PM (Electronically Signed)
[2025-09-16 13:13] LABS: Hematocrit* 45.0 % (37.0-53.0); Hemoglobin* 15.4 gm/dL (13.5-17.5); Immature Granulocytes Pct Auto 0.2 %; Mean Corpuscular HGB Conc 34 gm/dL (32-36); Mean Corpuscular Hemoglobin 29 pg (26-34); Mean Corpuscular Volume 85 fL (80-100); RDW Coefficient of Variation % 13.7 % (11.5-15.5); Red Blood Count* 5.32 m/uL (4.30-5.90); White Blood Count* 11.31 K/uL (4.50-11.00)
[2025-09-16 13:19] LABS: Immature Granulocytes Abs Auto 0.00 K/uL (0.00-0.30); Lymphocytes Absolute Auto 1.60 K/uL (0.90-2.90); Slide Review Reflex No
[2025-09-16 13:20] LABS: Creatinine, Point-of-Care* 0.9 mg/dl (0.6-1.3)
[2025-09-16 13:39] LABS: Albumin* 4.4 g/dL (3.3-5.0); Chloride* 101 mmol/L (96-114); Potassium* 3.8 mmol/L (3.6-5.1); Sodium* 132 mmol/L (135-149)
[2025-09-16 13:41] LABS: Blood Urea Nitrogen* 12 mg/dL (7-30); Creatinine* 0.8 mg/dL (0.5-1.5); Estimated Glomerular Filt Rate 99 ml/min
[2025-09-16 13:42] LABS: Alanine Aminotransferase* 43 U/L (4-50); Alkaline Phosphatase* 114 U/L (40-150); Anion Gap 8 mEq/L (7-15); Aspartate Amino Transferase* 35 U/L (12-35); Bilirubin Total* 1.4 mg/dL (0.1-1.5); Carbon Dioxide* 23 mmol/L (20-32); Total Protein* 8.1 g/dL (6.0-8.3)
[2025-09-16 13:43] LABS: Calcium* 9.6 mg/dL (8.4-10.6); Glucose* 97 mg/dL (60-115)
--- NOTE | 2025-09-16 13:51 | ED.ABDPAIN ---
HPI - Abdominal Pain General Date Seen: 09/16/25 Chief Complaint: Abdominal Pain Stated Complaint: Lower abdominal pain Time Seen by Provider: 09/16/25 12:24 Source: patient Mode of arrival: ambulatory Limitations: no limitations History of Present Illness HPI narrative: Patient is a 64-year-old male presenting to the emergency department for left lower quadrant abdominal pain. He states the pain started last night and initially it was related to gas. Pain persisted into this morning and due to that he was concerned and came into the emergency department. Denies having pain like this before. States he had a colonoscopy a few years ago and was told he has diverticulosis. Has not ate or drinking p.m. today but states due to not having much for appetite. Denies any nausea. He states the pain is tolerable. Has not noticed any fevers or chills. Denies chest pain, shortness of breath, diarrhea, constipation, dysuria, hematochezia, melena, hematuria. Has had no previous abdominal surgeries. No other concerns noted at this time. Related Data Home Medications ?Medication ?Instructions ?Recorded ?Confirmed omeprazole 40 mg capsule,delayed 40 mg PO DAILY 09/16/25 09/16/25 release semaglutide (weight loss) 0.5 0.3 mg subcut 09/16/25 mg/0.5 mL subcutaneous pen injector (Donovangovy) Previous Rx's ?Medication ?Instructions ?Recorded ciprofloxacin HCl 500 mg tablet 500 mg PO BID #10 tabs 09/16/25 metronidazole 500 mg tablet 500 mg PO Q8H #15 tabs 09/16/25 Allergies Allergy/AdvReac Type Severity Reaction Status Date / Time Penicillins Allergy Intermediate Verified 09/16/25 13:38 Review of Systems Status of ROS Reports: 10 or more systems reviewed and unremarkable except as noted in History and below Exam Narrative: Exam Narrative: Const: Well-nourished, Well-developed, in mild distress Eyes: PERRL, no conjunctival injection, and symmetrical lids HENT: Atraumatic external nose and ears. Moist mucous membranes. Neck: Symmetric, trachea midline, No thyromegaly. CVS: RRR, No murmurs or gallops. Peripheral pulses 2+ and equal in all extremities RESP: Unlabored respiratory effort. Clear to auscultation bilaterally. GI: Left lower quadrant tenderness, Nondistended, No rebound or guarding. MSK:Extremities w/o deformity, Normal Active ROM Skin: Warm, Dry. No rashes or lesions. Neuro: Normal Muscle tone, No focal neurological deficits. Psych: Awake, Alert, & Oriented x3. Appropriate mood and affect. Const: Vital Signs, click to edit/add: Vital Signs - 24 hr 09/16/25 12:21 Temperature 98.8 F Pulse Rate [Right Pulse Oximeter] 107 H Respiratory Rate 18 Blood Pressure [Ri ght Upper Arm] 157/81 H Pulse Oximetry 96 Oxygen Delivery Me thod Room Air Course Vital Signs Vital signs: Initial Vital Signs Temperature 98.8 F 09/16/25 12:21 Temperature Source Temporal Artery Scan 09/16/25 12:21 Pulse Rate 107 H 09/16/25 12:21 Pulse Rhythm Regular 09/16/25 12:21 Pulse Strength 3+ Normal 09/16/25 12:21 Respiratory Rate 18 09/16/25 12:21 Blood Pressure 157/81 H 09/16/25 12:21 Blood Pressure Mean 106 H 09/16/25 12:21 Blood Pressure Position Sitting 09/16/25 12:21 Pulse Oximetry 96 09/16/25 12:21 Oxygen Delivery Method Room Air 09/16/25 12:21 Vital Signs Temperature 98.8 F 09/16/25 12:21 Pulse Rate 107 H 09/16/25 12:21 Respiratory Rate 18 09/16/25 12:21 Blood Pressure 157/81 H 09/16/25 12:21 Pulse Oximetry 96 09/16/25 12:21 Oxygen Delivery Method Room Air 09/16/25 12:21 Temperature 98.8 F 09/16/25 12:21 Pulse Rate 107 H 09/16/25 12:21 Respiratory Rate 18 09/16/25 12:21 Blood Pressure 157/81 H 09/16/25 12:21 Pulse Oximetry 96 09/16/25 12:21 Oxygen Delivery Method Room Air 09/16/25 12:21 MDM - Abdominal Pain MDM Narrative Medical decision making narrative: Patient is a 64-year-old male presenting to emergency department for left lower quadrant abdominal pain. Based on location of pain and history of diverticulosis epic is concerned the diverticulitis at this time. Unlikely to be an SBO with no previous abdominal surgeries. Based on location also seems less likely be a pancreatitis, gastroenteritis, gallbladder/liver disease, appendicitis. Could possibly be urolithiasis. Will do urinalysis, CBC, CMP, lipase, viral swabs and do CT scan of his abdomen pelvis. Not requesting pain medication at this time. Lab work returned showing no acute concerning abnormalities. His sodium slightly low 130 to but a concerning level. CT scan reviewed by myself and the radiologist shows acute uncomplicated diverticulitis. I spoke to him about doing antibiotics versus conservative treatment. I explained recent research showing for otherwise healthy patient's like himself with stable vital signs non concerning lab work antibiotics have not been shown to improve outcomes. Explained antibiotics can cause an upset stomach, C diff, antibiotic resistant bacteria. After shared decision-making the patient decided he still wants to try antibiotics Lab Data Labs: Lab Results 09/16/25 09/16/25 Range/Units 12:42 12:55 WBC 11.31 H (4.50-11.00) K/uL RBC 5.32 (4.30-5.90) m/uL Hgb 15.4 (13.5-17.5) gm/dL Hct 45.0 (37.0-53.0) % MCV 85 (80-100) fL MCH 29 (26-34) pg MCHC 34 (32-36) gm/dL RDW Coeff of Julissa 13.7 (11.5-15.5) % Plt Count 227 (140-440) K/uL Neut % (Auto) 73.7 H (42.0-72.0) % Lymph % (Auto) 14.1 L (20-44) % [place] % (Auto) 10.5 (0.0-11.0) % Eos % (Auto) 1.2 (0.0-7.0) % Baso % (Auto) 0.3 (0.0-3.0) % Neut # (Auto) 8.30 H (1.7-7.0) K/uL Lymph # (Auto) 1.60 (0.90-2.90) K/uL [place] # (Auto) 1.20 H (0.00-0.90) K/UL Eos # (Auto) 0.10 (0.00-0.50) K/uL Baso # (Auto) 0.00 (0.00-0.30) K/uL Abs Immat Gran (auto) 0.00 (0.00-0.30) K/uL Imm/Tot Granulo (auto) 0.2 % Sodium 132 L (135-149) mmol/L Potassium 3.8 (3.6-5.1) mmol/L Chloride 101 (96-114) mmol/L Carbon Dioxide 23 (20-32) mmol/L Anion Gap 8 (7-15) mEq/L BUN 12 (7-30) mg/dL Creatinine 0.8 (0.5-1.5) mg/dL Estimated GFR 99 ml/min Glucose 97 (60-115) mg/dL Calcium 9.6 (8.4-10.6) mg/dL Total Bilirubin 1.4 (0.1-1.5) mg/dL AST 35 (12-35) U/L ALT 43 (4-50) U/L Alkaline Phosphatase 114 (40-150) U/L Total Protein 8.1 (6.0-8.3) g/dL Albumin 4.4 (3.3-5.0) g/dL Lipase 159 (23-300) U/L SARS-CoV-2 (PCR) Negative SARS-CoV-2 (Negative) Influenza Type A (PCR) Negative PCR FLU A (Negative) Influenza Type B (PCR) Negative PCR FLU B (Negative) RSV (PCR) Negative PCR RSV (Negative) POC Creatinine 0.9 (0.6-1.3) mg/dl Imaging Data CT scan abdomen and pelvis: Attestation: I have reviewed the pertinent imaging results. Radiologist's impression: Acute uncomplicated descending colonic diverticulitis. Please note that all CT scans at this facility use dose modulation, iterative reconstruction, and/or weight-based dosing when appropriate to reduce radiation dose to as low as reasonably achievable. Dictated by Sheryl Perdue MD @ 09/16/2025 1:48:49 PM Discharge Plan Discharge Clinical Impression: Diverticulitis Patient Disposition: Home, Self-Care Condition: Stable Instructions: Diverticulitis (DC) Additional Instructions: Take Tylenol and ibuprofen for your pain. Return to emergency department for new or worsening symptoms. Pain is not improving follow-up with your primary care provider. Take the antibiotics as prescribed. Prescriptions: New metronidazole 500 mg tablet 500 mg PO Q8H Qty: 15 0RF ciprofloxacin HCl 500 mg tablet 500 mg PO BID Qty: 10 0RF No Action omeprazole 40 mg capsule,delayed release(DR/EC) 40 mg PO DAILY Wegovy 0.5 mg/0.5 mL pen injector 0.3 mg subcut Follow Up/Referrals: Imelda Braswell PA-C [Primary Care Provider, Family Practice] Stand Alone Forms: [employer] Info Instructions
[2025-09-16 13:52] LABS: PCR FLU A Negative PCR FLU A (Negative); PCR FLU B Negative PCR FLU B (Negative); PCR RSV Negative PCR RSV (Negative); SARS PCR* Negative SARS-CoV-2 (Negative)
== END 2025-09-16 14:52 | disposition home or self-care (01) ==
PROVIDERS: Emergency Provider Student in an Organized Health Care Education/Training Program; PCP Physician Assistant
DX: K57.32 Diverticulitis of large intestine without perforation or abscess without bleeding (principal)
CPT/HCPCS: 36415; 74177; 80053; 81001; 82565; 83690; 85025; 87631; 99284; 99285; Q9967